=== PATIENT | male | born 2000 | race Caucasian/White ===

== ENCOUNTER 2024-08-16 18:08 | Emergency (ER) | payer MEDICAID ==
[~2024-08-16] VITALS: Ht 172.7 cm; Wt 81.0 kg
[2024-08-16 18:10] VITALS: O2SAT 99
[2024-08-16 18:55] VITALS: BP 152/80; PULSE 76; RESP 18; TEMP 37.1; O2SAT 99
[2024-08-16] MEDS: ACETAMINOPHEN 325MG TABLET PO ONE (19:00)
[2024-08-16 19:36] LABS: CLARITY URINE CLEAR (CLEAR); COLOR URINE YELLOW (YELLOW); GLUCOSE URINE NEGATIVE (NEGATIVE); KETONES URINE NEGATIVE (NEGATIVE); LEUKOCYTE ESTERASE URINE NEGATIVE (NEGATIVE); NITRITE URINE NEGATIVE (NEGATIVE); OCCULT BLOOD URINE NEGATIVE (NEGATIVE); PH URINE 6.5 (4.5-8.0); PROTEIN URINE NEGATIVE (NEGATIVE)
== END 2024-08-16 21:03 | disposition left against medical advice (07) ==
LOC: ER 18:08
DX: Z11.3 Encounter for screening for infections with a predominantly sexual mode of transmission (principal)
CPT/HCPCS: 81003; 99283